=== PATIENT | female | born 1960 | race Two or more races ===

== ENCOUNTER 2025-03-21 06:28 | Inpatient (IN) | payer MEDICARE ==
[~2025-03-21] VITALS: Ht 167.6 cm; Wt 91.5 kg
[2025-03-21] MEDS ORDERED: fentaNYL CITRATE 100 MCG/2 ML VL ONE ×2 (06:58→07:53)
[2025-03-21] MEDS ORDERED: PROPOFOL 10 MG/ML 20 ML IV ONE (06:59)
[2025-03-21] MEDS ORDERED: HYDROmorphone HCL 2 MG/ML VL/or syr ONE (07:00)
[2025-03-21] MEDS: BUPIVACAINE 0.25% INJ 50ML VIAL ONE (07:00)
[2025-03-21] MEDS: ceFAZolin 2 GM/D5W50ml 50 ML IV ONE (07:22)
[2025-03-21] MEDS: CEFEPIME 1GM/50ML 50 ML IV ONE (07:22)
[2025-03-21] MEDS ORDERED: ONDANSETRON HCL 4 MG/2 ML VIAL ONE (07:34)
[2025-03-21] MEDS ORDERED: PHENYLEPHRINE HCL 10 MG/ML VL ONE (07:37)
[2025-03-21] MEDS: TRANEXAMIC ACID 20 ML ONE (07:40)
[2025-03-21] MEDS: KETOROLAC TROMETH 30 MG/ML 1ML VIAL ONE (08:11)
[2025-03-21] MEDS: MORPHINE SULF PF 5 MG/10 ML VIAL ONE (08:13)
[2025-03-21] MEDS: VANCOMYCIN HCL 1000 MG VL ONE (08:44)
[2025-03-21] MEDS: ROPIVACAINE 0.5% (5MG/ML) 20ML AMPULE IJ ONE (08:52)
[2025-03-21 09:16] VITALS: O2SAT 97
--- NOTE | 2025-03-21 09:22 | DVHOP2 ---
Operative Report - 2 Report Details Date: 03/21/25 Preop Diagnosis: Left knee degenerative arthritis Postop Diagnosis: Left knee degenerative arthritis Surgeon: Vivian Dukes MD Chlorine Operator: Luisana PIKE Anesthesiologist: Caridad Anesthesia: General Drains: Héctor closed wound suction Implant: DonJoy size six femur PS, satisfied tibial plate, 10 poly, 32 patella Consent: The patient was informed of the risks and benefits of the procedure. These include but are not limited to complications of anesthesia, postoperative infection, incomplete relief of symptoms, recurrence of symptoms, damage to blood vessels, nerves and tendons, deep venous thrombosis, pulmonary embolism and possible need for repeat surgery in the future. Complications: None Estimated Blood Loss: 50 cc Fluids: See anesthesia record Findings: Denuded cartilage with eburnated bone, varus deformity, osteophytes Indications for Surgery: Left knee degenerative arthritis with severe pain and functional impairment despite nonoperative management Name of Procedure Performed Left total knee arthroplasty Procedure Details Procedure Details: The patient was brought to the operating room and placed on the table in the supine position after being given general. Surgical timeout was performed verifying patient, laterality and procedure Preop patient received IV cefepime IV Ancef and IV tranexamic acid. Tourniquet was applied to the lower extremity. Lower extremity was prepped and draped in sterile fashion. Extremity was elevated, exsanguinated Esmarch, and tourniquet inflated. Midline incision was made followed by medial arthrotomy. I exposed the anterior medial and lateral tibial plateau and the anterior distal femur. Bovie and aqua mantis were used for hemostasis. I excised the anterior meniscal tissue with Bovie. I excised a portion of the fat pad with Bovie. The patella was everted and the knee flexed. I drilled the distal femur and suctioned the hole to reduce the risk of fat emboli. I inserted intramedullary guide with 5 degree valgus setting. I pinned the distal femoral cutting block anteriorly. Intramedullary baljinder was removed. Distal femoral cut was made and the block removed. I brought my attention to the tibia setting up the external cutting jig for the tibia paying attention to slope, rotation and varus valgus alignment. I set the depth and pinned the block. I used the external alignment baljinder to aid in checking alignment. Bone cut was made and bone removed releasing soft tissue attachments with Bovie. Cutting block removed. I then checked the extension gap and deemed adequate and removed the femur and tibia pins. I flexed the knee and applied the femoral sizing guide to the femur. I checked the size and external rotation setting at 90 degrees to Whitesides line and checking the epicondylar axis. I drilled the holes then removed the sizing guide and pin. I then tapped on the 4 in 1 cutting block and checked with the crescencio wing anteriorly to make sure that I would not notch then pinned the block. Cuts were made and the block and pins were removed. Bone was removed with curved osteotome. I used a rongeur to rem ove any remaining osteophytes at the femur and tibia. I then used a lamina stem assembler to open up the back alternating between the medial and lateral side. Any remaining meniscal tissue was excised with scalpel. I used curved osteotome, curette and rongeur to remove any posterior osteophytes. I prophylactically coagulated with aqua mantis. I then tapped on the template for the box cut and pinned it. Box cut was made and bone removed. Template and pin removed. I then tapped on the femoral trial. I then brought my attention back to the tibia sizing it. I used the external alignment baljinder to make sure that rotation and alignment were good. I made a Bovie sundeep at the tibial tray sundeep identifying rotation for later use. I tried various tibial polytrials. [I then brought my attention to the patella. I sequentially dissected soft tissue with Bovie. I checked the thickness with caliper. I set the appropriate depth of cut on the cutting guide. I attached the cutting guide made my cut. I then sized the patella and made my drill holes. I then placed the patella trial with appropriate depth based on overall precut thickness. ] The patella tracked nicely without thumb pressure. I removed the trials. I pinned the tray and used the reamer and keel punch. The implants were brought into the field while bone preparation was started. I used both normal saline irrigation and the CarboJet to prepare the bone. I used the bone from the cuts to graft the femoral tunnel. Once cement was ready I applied cement to the tibial implant and tibial bone tapped it on and removed excess cement in usual fashion. In similar fashion I tapped on the femoral implant. I inserted the trial polyethylene and brought the knee into 30 degrees flexion. [I then applied the patella implant in similar fashion holding pressure with the pressurization device.] I irrigated with bactisurge irrigant. Once cement cured, I checked stability and range of motion as well as patella tracking. tourniquet was released and hemostasis maintained with aqua mantis. I inserted the polyethylene and again checked stability. I used a 2 grams of vancomycin half of which was placed deep and half superficial. I repaired the extensor mechanism with the knee in flexion with #1 Ethibond interrupted [id number]. Deep subcutaneous tissue was closed with 0 Vicryl. Superficial subcutaneous tissue was closed with 2-0 vicryl interrupted. Skin was closed with rachel. I then applied the [héctor closed wound suction]. Patient tolerated the procedure well and was brought to recovery room in stable condition. Condition Stable Disposition Still a Patient VIVIAN DUKES MD Mar 21, 2025 09:22
[2025-03-21] MEDS ORDERED: ACETAMINOPHEN 325 MG TAB PO PRN (09:30)
[2025-03-21] MEDS: D5W/LACTATED RINGERS 1,000 ML IV SCH (09:40)
[2025-03-21] MEDS: ACETAMINOPHEN IV 1000 MG/100ML (10MG/ML) IV ONE (09:52)
[2025-03-21] MEDS: HYDROmorphone HCL 2 MG/ML VL/or syr IV PRN (09:52)
[2025-03-21] MEDS: HYDROmorphone HCL 2 MG/ML VL/or syr ONE (09:54)
[2025-03-21] MEDS: ACETAMINOPHEN IV 100 ML IV ONE (09:55)
[2025-03-21] MEDS: PREGABALIN 25 MG CAP PO SCH (10:00)
--- NOTE | 2025-03-21 10:00 | DVH ---
CLINICAL INDICATION: Postop TECHNIQUE: XYXY L KNEE 3V XRAY Comparison: XR KNEE LEFT 3 VIEW on DOS: 08/02/24, XR KNEE RIGHT 3 VIEW on DOS: 08/02/24 FINDINGS/IMPRESSION: : Left total knee arthroplasty appears well positioned and aligned on the single frontal view. No immed iate complication. Expected post surgical changes including skin rachel and soft tissue gas.
[2025-03-21] MEDS: fentaNYL CITRATE 100 MCG/2 ML VL IV PRN (10:42)
[2025-03-21] MEDS: KETOROLAC TROMETH 30 MG/ML 1ML VIAL IV SCH (14:12)
[2025-03-21] MEDS: ACETAMINOPHEN 325 MG TAB PO SCH (14:13)
[2025-03-21] MEDS: ceFAZolin 2 GM/D5W50ml 50 ML IV SCH (14:22)
[2025-03-21 16:03] VITALS: BP 133/76; PULSE 83; RESP 18; TEMP 97.1; O2SAT 96
[2025-03-21 16:13] VITALS: RESP 18
[2025-03-21 16:14] VITALS: BP 133/76; PULSE 83; RESP 18; TEMP 97.1; O2SAT 96
[2025-03-21 19:53] VITALS: PULSE 87; RESP 18; O2SAT 98
[2025-03-21 21:00] VITALS: BP 113/76; PULSE 95; RESP 18; TEMP 97.4; O2SAT 92
[2025-03-22] VITALS (7 sets, daily range): BP systolic 110–147; BP diastolic 74–90; PULSE 68–110; RESP 17–20; TEMP 37.2; O2SAT 96–97
[2025-03-22 06:43] LABS: Hematocrit 33.6 % (36.0-46.0); Hemoglobin 11.6 g/dL (12.2-16.2); Mean Corpuscular Hemoglobin 30.0 pg (28.0-32.0); Mean Corpuscular Volume 87.0 fL (80.0-100.0); Nucleated Red Blood Cells % 0.0 %
[2025-03-22 06:47] LABS: Potassium 3.9 mmol/L (3.5-5.1); Sodium 142 mmol/L (136-145)
[2025-03-22 06:48] LABS: Anion Gap 8 (5-15); Calcium 8.9 mg/dL (8.7-10.4); Carbon Dioxide 26 mmol/L (20-31)
[2025-03-22 06:53] LABS: BUN/Creatinine Ratio 12.5 (10.0-20.0); Blood Urea Nitrogen 8 mg/dL (9-23); Chloride 108 mmol/L (98-107); Glucose 109 mg/dL (74-106)
--- NOTE | 2025-03-22 15:03 | DVHDS2 ---
Discharge Summary Date of Admission Mar 21, 2025 at 09:22 Date of Discharge: Mar 22, 2025 Labs/Diagnostic Data: Laboratory Results Test 03/22/25 05:53 White Blood Count 9.6 10^3/uL (4.4-10.8) Red Blood Count 3.86 10^6/uL (4.0-5.20) Hemoglobin 11.6 g/dL (12.2-16.2) Hematocrit 33.6 % (36.0-46.0) Mean Corpuscular Volume 87.0 fL (80.0-100.0) Mean Corpuscular Hemoglobin 30.0 pg (28.0-32.0) Mean Corpuscular Hemoglobin Concent 34.5 g/dL (32.0-36.0) Red Cell Distribution Width 13.5 % (11.8-14.3) Platelet Count 244 10^3/uL (140-450) Mean Platelet Volume 7.4 fL (6.9-10.8) Neutrophils (%) (Auto) 76.2 % (37.0-80.0) Lymphocytes (%) (Auto) 13.7 % (10.0-50.0) Monocytes (%) (Auto) 9.7 % (0.0-12.0) Eosinophils (%) (Auto) 0.1 % (0.0-7.0) Basophils (%) (Auto) 0.3 % (0.0-2.0) Neutrophils # (Auto) 7.3 10 ^3/uL (1.6-8.6) Lymphocytes # (Auto) 1.3 10 ^3/uL (0.4-5.4) Monocytes # (Auto) 0.9 10 ^3/uL (0-1.3) Eosinophils # (Auto) 0 10 ^3/uL (0-0.8) Basophils # (Auto) 0 10 ^3/uL (0-0.2) Nucleated Red Blood Cells 0.0 % Sodium Level 142 mmol/L (136-145) Potassium Level 3.9 mmol/L (3.5-5.1) Chloride Level 108 mmol/L (98-107) Carbon Dioxide Level 26 mmol/L (20-31) Anion Gap 8 (5-15) Blood Urea Nitrogen 8 mg/dL (9-23) Creatinine 0.64 mg/dL (0.550-1.02) Glomerular Filtration Rate Calc 98 mL/min (>90) BUN/Creatinine Ratio 12.5 (10.0-20.0) Serum Glucose 109 mg/dL (74-106) Calcium Level 8.9 mg/dL (8.7-10.4) Other Laboratory Tests 03/22/25 05:53 Brief Hx & Hospital Course: Patient was brought to the hospital yesterday to undergo a left total knee arthroplasty. She tolerated the procedure well without complications and was kept overnight for postoperative observation. Patient has remained medically stable denying any overnight events and reports that she was able to get up and walk with the help of physical therapy and her walker and was able to get down the steen around the nurses station and back to her bed while feeling very stable albeit with some postoperative knee pain. Patient is otherwise feeling well denying any other complaints or concerns during my evaluation and would like to go home. Condition at Discharge: Stable Final Diagnosis/Problems List Left knee degenerative arthritis Discharge Disposition: Home Discharge Instruct/Medications Diet: Regular Activity: See Comment Activity comment: Patient to remain weight-bearing as tolerated with the assistance of a walker Follow Up/Referral: Patient instructed to follow up with our office in 10-14 days for her 1st postoperative evaluation. Medications: Rx sent via our outpatient EMR system No Active Prescriptions or Reported Meds Discharge Statement: "Patient was advised to return to the ER or call 911 if any headaches, dizziness, shortness of breath, chest pain, abdominal pain, bleeding, fevers, or worsening of medical condition. Patient was counseled about treatment plan, medications, possible side effects, patientverbalized understanding. All questions were answered to the best of my ability. This discharge took greater then 30 minutes in planning, reviewing documentation, counseling the patient, and discussing with other team members." ASSESSMENT ASSESSMENT Assessment Left knee degenerative arthritis JAILENE GUTIERREZ Mar 22, 2025 15:03
--- NOTE | 2025-03-22 15:05 | DVHPN2 ---
Progress Note - Dictate Date Seen: Mar 22, 2025 Medical Necessity Reason Pt with a Central, PICC or Fol: No Subjective Patient was lying comfortably in bed during my evaluation reports some postoperative knee pain that is being well managed with the help of pain medication. Patient reports that she was able to get up and walk with the help of physical therapy and her walker and was able to get down the steen around the nurses station and back to her bed with some postoperative knee pain but otherwise felt stable. Patient was otherwise feeling well denying any other complaints or concerns during my evaluation and would like to go home. vital signs Vital Sign Date Time Temp Pulse Resp B/P (MAP) Pulse Ox O2 Delivery O2 Flow Rate FiO2 03/22/25 09:00 97.3 95 18 131/81 (98) 96 97.3 03/21/25 19:53 Room Air* 0 21 Total Intake and Output 03/21/25 03/21/25 03/22/25 15:00 23:00 07:00 Intake Total 120 ml 700 ml 1650 ml Balance 120 ml 700 ml 1650 ml medications Current Medications Medications Dose Ordered Sig/Yudy Route Start Time Stop Time Status Last Admin Dose Admin Dextrose/Lactated Ringer's 1,000 ml @ 100 mls/hr Q10H IV 03/21/25 09:30 03/22/25 10:33 100 MLS/HR Acetaminophen 650 mg Q4HP PRN PO 03/21/25 09:30 Acetaminophen 650 mg Q6HR PO 03/21/25 12:00 03/22/25 12:04 650 MG Ketorolac Tromethamine 15 mg Q6HR IV 03/21/25 12:00 03/26/25 11:59 03/22/25 12:04 15 MG Pregabalin 50 mg BID PO 03/21/25 10:00 03/22/25 09:10 50 MG Oxycodone HCl 5 mg Q4HP PRN PO 03/21/25 09:30 03/21/25 18:31 5 MG Oxycodone HCl 10 mg Q4HP PRN PO 03/21/25 09:30 03/22/25 09:11 10 MG Aspirin 81 mg BID PO 03/22/25 10:00 03/22/25 09:09 81 MG Fentanyl Citrate 25 mcg [id number] PRN IV 03/21/25 10:03/21/25 10:42 25 MCG Hydromorphone HCl 0.5 mg [id number] PRN IV 03/21/25 10:00 03/21/25 10:22 0.5 MG objective A&O x4 in no acute distress Knee range of motion grossly limited with pain on movement Adelina dressing clean, dry, intact, and maintaining suction No distal edema or calf tenderness to palpation Neurovascularly intact with cap refill less than 2 seconds laboratory and microbiology Laboratory Tests 03/22/25 05:53 Test 03/22/25 05:53 Range/Units Serum Glucose 109 H 74-106 mg/dL Assessment/Plan Patient to be discharged home and advised to remain weight-bearing as tolerated with the assistance of a walker and to follow up with our office in 10-14 days for her 1st postoperative evaluation. I instructed the patient to maintain her dressings clean, dry, intact, and maintaining suction and to call our office if she has any further questions or concerns. Rx sent via our outpatient EMR system. Patient understood and agreed. Plan discussed with: Patient JAILENE GUTIERREZ Mar 22, 2025 15:05
== END 2025-03-22 18:10 | disposition home or self-care (01) | DRG 470 ==
LOC: SUR 06:28 → OVERFLOW 09:22 → EAST 16:05
PROVIDERS: ADMIT Orthopaedic Surgery; ATTEND Orthopaedic Surgery
PROC: 0SRD0J9 Replacement of Left Knee Joint with Synthetic Substitute, Cemented, Open Approach (ICD-10-PCS; principal; 2025-03-21 07:22)
DX: M17.12 Unilateral primary osteoarthritis, left knee (principal); Z79.899 Other long term (current) drug therapy
CPT/HCPCS: 36415; 73562; 80048; 85025; 86850; 86900; 86901; 97110; 97116; 97163; 97530; G0378; J0131; J1100; J1885; J2405; J2704; J3490